=== PATIENT | female | born 1990 | race Caucasian/White ===

== ENCOUNTER 2019-03-12 05:00 | Inpatient (IN) ==
[2019-03-12 05:22] LABS: Microscopic, Urine URINE MICROSCOPIC (MICROSCOPIC)
[2019-03-12 05:25] LABS: Basophils % 0.4 % (0.1-2.0); Eosinophils # 0.2 K/mm3 (0.0-0.4); Hemoglobin 12.8 g/dL (12.2-16.2); Lymphocytes # 1.6 K/mm3 (0.7-4.5); Lymphocytes % 20.3 % (10-50); Mean Corpuscular HGB Conc 32.8 g/dL (31.8-35.4); Mean Corpuscular Volume 89.9 fl (81-99); Mean Platelet Volume 7.5 fl (7.4-10.4); Monocytes # 0.5 K/mm3 (0.1-1.0); Monocytes % 5.7 % (1.7-9.3); Neutrophils # 5.7 K/mm3 (1.8-7.8); Neutrophils % 71.6 % (37.0-80.0); Platelet Count 268 K/mm3 (142-424); Red Blood Count 4.34 M/mm3 (4.20-5.40); Red Cell Distribution Width 12.4 % (11.5-17.5)
[2019-03-12 05:26] LABS: Appearance,Urine CLEAR (Clear); Bilirubin,Urine Negative (Negative); Blood, Urine Negative (Negative); Color,Urine YELLOW (Yellow); Glucose,Urine (UA) Negative (Negative); Ketones,Urine Negative (Negative); Leukocyte Esterase,Urine Negative (Negative); PH,Urine 5.5 (5.0-8.5); Protein,Urine Negative (Negative); Specific Gravity, Urine >= 1.030 (1.005-1.030); Urobilinogen,Urine 0.2 EU/dl (0.2)
[2019-03-12 05:31] LABS: Mucus,Urine 4+ /lpf
[2019-03-12 05:37] LABS: Alanine Aminotransferase 24 U/L (12-78); Albumin Level 3.8 gm/dL (3.4-5.0); Alkaline Phosphatase 69 U/L (46-116); Amylase 78 U/L (25-115); Anion Gap 14.8 mEq/L (5-15); Aspartate Amino Transferase 45 U/L (15-37); Bilirubin,Direct 0.2 mg/dL (0.0-0.2); Bilirubin,Indirect 0.3 mg/dL (0.0-0.9); Bilirubin,Total 0.5 mg/dL (0.2-1.0); Blood Urea Nitrogen 7 mg/dL (7-18); Calcium 8.9 mg/dL (8.5-10.1); Carbon Dioxide 24 mmol/L (21.0-32.0); Chloride 103 mmol/L (98-107); Glucose 127 mg/dL (74-106); Sodium 138 mmol/L (136-145); Total Protein,Serum 7.5 gm/dL (6.4-8.2)
--- NOTE | 2019-03-12 05:50 | Emergency Department Note ---
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 The time I documented below is in addition to time spent performing reported procedures but includes the following listed in this critical care notation. Medical Decision Making - Medical Records Medical records reviewed: Yes: I reviewed the patient's medical records. - Harvey Inquiry Pt receiving controlled substance: No Harvey was queried for this patient: No Vital Signs: 03/12/19 05:09 Temperature 98.3 F Temperature Source Oral Pulse Rate [Right] 77 Respiratory Rate 18 Blood Pressure [Right Arm] 106/61 L Blood Pressure Mean [Right Arm] 76 Blood Pressure Source [Right Arm] Automatic Cuff Blood Pressure Position [Right Arm] Supine 02 Sat by Pulse Oximetry 100 Oxygen Delivery Method Room Air - Lab Data Lab results reviewed: Yes: I reviewed the patient's lab results. Lab Results 03/12/19 05:08: Urine Color Yellow, Urine Appearance Clear, Urine pH 5.5, Ur Specific [place] >= 1.030, Urine Protein Negative, Urine Glucose (UA) Negative, Urine Ketones Negative, Urine Blood Negative, Urine Nitrate Negative, Urine Bilirubin Negative, Urine Urobilinogen 0.2, Ur Leukocyte Esterase Negative, Ur Squamous Epith Cells 10-20, Urine Mucus 4+ 03/12/19 05:08: WBC 8.0, RBC 4.34, Hgb 12.8, Hct 39.0, MCV 89.9, MCH 29.5, MCHC 32.8, RDW 12.4, Plt Count 268, MPV 7.5, Neut % (Auto) 71.6, Lymph % (Auto) 20.3, [place] % (Auto) 5.7, Eos % (Auto) 2.0, Baso % (Auto) 0.4, Neut # (Auto) 5.7, Lymph # (Auto) 1.6, [place] # (Auto) 0.5, Eos # (Auto) 0.2, Baso # (Auto) 0.0 03/12/19 05:08: Urine HCG, Qual Negative 03/12/19 05:08: Sodium 138, Potassium 3.8, Chloride 103, Carbon Dioxide 24, Anion Gap 14.8, BUN 7, Creatinine 0.86, Estimated Creat Clear 98, Estimated GFR 77, Est GFR ( Amer) 93, Glucose 127 H, Calcium 8.9, Total Bilirubin 0.5, Direct Bilirubin 0.2, Indirect Bilirubin 0.3, AST 45 H, ALT 24, Alkaline Bess sphatase 69, Troponin I < 0.02, Total Protein 7.5, Albumin 3.8, Amylase 78, Lipase 905 H 03/12/19 05:42: Lactate 0.7 Result diagrams: 03/12/19 05:08 03/12/19 05:08 Orders (Tests/Meds): ED MEDICATIONS Generic Name Dose Route Start Last Admin Trade Name Freq PRN Reason Stop Dose Admin Sodium Chloride 1,000 mls @ 999 mls/hr 03/12/19 05:30 03/12/19 05:55 Sod Chlor 0.9% 1000ml Bag IV 03/12/19 06:30 999 mls/hr .Q1H1M DAFNE Administration Sodium Chloride 10 ml 03/12/19 05:17 Saline Flush 10ml Syringe IV 04/11/19 05:16 NEEDED PRN Maintain IV Site Sodium Chloride 8 ml 03/12/19 05:17 Sodium Chloride 0.9% 10ml Vial IV 04/11/19 05:16 NEEDED PRN dilute pepcid Sodium Chloride 10 ml 03/12/19 05:25 03/12/19 05:55 Sodium Chloride 0.9% 10ml Vial IV 04/11/19 05:24 10 ml NEEDED PRN Administration dilute protonix Sodium Chloride 10 ml 03/12/19 05:25 Saline Flush 10ml Syringe IV 04/11/19 05:24 NEEDED PRN Maintain IV Site Discontinued Medications Generic Name Dose Route Start Last Admin Trade Name Freq PRN Reason Stop Dose Admin Diatrizoate Meglum/Diatrizoate Sod 30 ml 03/12/19 05:17 03/12/19 05:34 Gastrografin 66%-10% 30ml PO 03/12/19 05:18 Not Given ONCE ONE Famotidine 20 mg 03/12/19 05:17 03/12/19 05:56 Pepcid 20mg/2ml Vial IV 03/12/19 05:18 20 mg ONCE ONE Administration Hydromorphone HCl 0.5 mg 03/12/19 05:24 03/12/19 06:52 Dilaudid 2mg/Ml Syringe IV 03/12/19 05:25 Not Given ONCE ONE Hydromorphone HCl 1 mg 03/12/19 05:53 03/12/19 05:55 Dilaudid 2mg/Ml Syringe IV 03/12/19 05:54 1 mg ONCE ONE Administration Ioversol 75 ml 03/12/19 06:29 03/12/19 06:30 Rad-Optiray 350 100ml Vial IV 03/12/19 06:30 75 ml ONCE ONE Administration Protocol Ketorolac Tromethamine 30 mg 03/12/19 05:17 03/12/19 05:56 Toradol 30mg/Ml Vial IV 03/12/19 05:18 30 mg ONCE ONE Administration Metoclopramide HCl 10 mg 03/12/19 05:17 03/12/19 05:56 Reglan 10mg/2ml Vial IVP 03/12/19 05:18 10 mg ONCE ONE Administration Ondansetron HCl 4 mg 03/12/19 05:17 03/12/19 05:56 Zofran 4mg/2ml Vial IV 03/12/19 05:18 4 mg ONCE ONE Administration Ondansetron HCl 4 mg 03/12/19 05:25 03/12/19 05:54 Zofran 4mg/2ml Vial IV 03/12/19 05:26 4 mg ONCE ONE Administration Pantoprazole Sodium 40 mg 03/12/19 05:25 03/12/19 06:52 Protonix 40mg Vial IV 03/12/19 05:26 Not Given ONCE ONE Sodium Chloride 10 ml 03/12/19 06:29 03/12/19 06:30 Rad-Saline Flush 10ml Syringe IV 03/12/19 06:30 10 ml ONCE ONE Administration ORDERS Category Date Time Status CT abdomen pelvis w con Stat Cat Scan 03/12/19 05:17 Taken - Physician Consults Physician Consulted: ba dillard gastro Comment/Response: mrcp if levels rise yasmine, rec obs status here ...clear liquids Additional Consult: claudia Reason -: Admission, Pt condition Abdominal Pain HPI - General Chief Complaint: Abdominal Pain Stated Complaint: Abdominal Pain Time Seen by Provider: 03/12/19 05:15 Mode of Arrival: Ambulatory Limitations: No Limitations Description of Symptoms (Recalled from ER Triage Doc. by RN): Pt c/o RUQ abd pain w/ nausea and diarrhea x 3 days - History of Present Illness HPI narrative: she tells me pain began at 0100, associated with nausea. Elizabeth remote, no similar previous symptoms - Related Data Home Medications Medication Instructions Recorded Confirmed fluoxetine 10 mg capsule 10 mg PO DAILY 01/15/19 03/12/19 Allergies Allergy/AdvReac Type Severity Reaction Status Date / Time SULFA (SULFONAMIDE) Allergy Intermediate I-RASH Uncoded 01/15/19 10:20 [facility] History - Hepatitis A Screen Drug use history?: No High risk sexual behaviors?: No History of sexually transmitted infection?: No Currently employed?: No Childcare worker?: No Do you have indoor plumbing?: Yes Do you have electricity?: Yes Attestation statement:: This patient has been screened for Hepatitis A risk factors. I have reviewed the patient's past medical history: Yes Medical History: Reports:: Depression Denies:: Diabetes Mellitus Type 1, Diabetes Mellitus Type 2 Other Surgeries: Yes: No Previous Surgery Amputation: No - Social History Smoking Status: Never smoker Alcohol Intake: never Substance Use Type: denies use Occupational Status: employed Housing: house Household Members: family - Psychiatric History Pschychiatric History:: Reports:: Depression Family Hx:: Non-contributory ROS Obtained: Yes All systems reviewed & no additional complaints - Constitutional Constitutional: Reports chills - Cardiovascular Cardiovascular: Denies chest pain, Denies chest pain at rest - Respiratory Respiratory: No chest congestion, No cough - Gastrointestinal Gastrointestingal: Reports: abdominal pain, nausea. Denies: vomiting blood - Genitourinary Female Genitourinary: Denies dysuria, Denies flank pain - Musculoskeletal Musculoskeletal: Denies joint stiffness, Denies joint swelling, Denies muscle weakness - Integumentary/Breasts Skin/Breast: Denies rash, Denies skin pain - Neurologic Neurologic: Denies headache(s), Denies numbness Physical Exam - General General appearance: alert, in no apparent distress - Head Head exam: atraumatic, normocephalic, normal inspection - Eye Eye exam: Present: normal appearance, PERRL, EOMI - ENT ENT exam: Present: normal exam, normal oropharynx, mucous membranes moist, TM's normal bilaterally, normal external ear exam - Neck Neck exam: Present: normal inspection, full ROM, trachea midline. Absent: meningismus, lymphadenopathy - Chest Chest inspection: Present: normal inspection, symmetric chest wall rise. Absent : tenderness - Respiratory Respiratory exam: Present: normal lung sounds bilaterally. Absent: respiratory distress - Cardiovascular Cardiovascular exam: Present: regular rate, normal rhythm. Absent: JVD - Abdominal Exam Abdominal exam: Present: soft, tenderness. Absent: distention, guarding, rebound Abdominal tenderness: Present: RUQ - Extremities Exam Extremities exam: Present: normal inspection, full ROM, normal capillary refill. Absent: calf tenderness - Back Exam Back exam: Present: normal inspection. Absent: tenderness - Neurological Exam Neurological exam: Present: alert, oriented X3 - Psychiatric Psychiatric exam: Present: normal affect, normal mood - Lymphatic Lymphatic Findings: no adenopathy
--- NOTE | 2019-03-12 11:15 | Pharmacy Consult Notes ---
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
--- NOTE | 2019-03-12 11:43 | History & Physical Report ---
*Admission Date: 03/12/19 *Chief complaint: Abdominal pain *History of present illness: She is a 29-year-old female who presented to our ED with epigastric abdominal pain that started yesterday. She mentioned that she was having some diarrhea prior to her pain for about a day. She had her gallbladder removed in 2012, however she felt like this pain was similar to that but much worse. She endorses having a nausea and vomiting episodes as well. Denies having any prior pancreatitis episode. Denies drinking any alcohol more than occasional level. In the ED her work-up showed elevated lipase. Consult of GI specialist, Dr. Villatoro was obtained who recommended getting a MRCP if possible. Patient was adm itted to our hospital for pain control and treating mild pancreatitis episode, to obtain MRCP. During rounds, patient mentions that she is doing a lot better compared to last night. She will was having some epigastric tenderness. Is willing to try clear liquid diet. [facility] [place] History I have reviewed the patient's past medical history: Yes Medical History: Reports:: Depression Denies:: Cancer, Diabetes Mellitus Type 1, Diabetes Mellitus Type 2, MRSA *Have you ever received a pneumonia vaccine?: No *Have you received a flu vaccine this season?: Yes Other Surgeries: Yes: No Previous Surgery, Cholecystectomy Amputation: No Fractures: No - *Social History Educational Level: Completed College Smoking Status: Never smoker Alcohol Intake: never Substance Use Type: denies use *Occupational Status:: employed Housing: house Household Members: family *Travel in the last 8 weeks: None - Psychiatric History Pschychiatric History:: Reports:: Depression Family Hx:: Non-contributory, Cancer, Diabetes Review of Systems - Constitutional Reports lack of energy, Denies fatigue, Denies increased appetite, Denies malaise - Eyes Denies blurry vision - ENT Denies change in voice - *Cardiovascular Denies chest pain, Denies chest pain at rest, Denies chest pain with activity, Denies leg pain with activity, Denies shortness of breath - *Respiratory Denies change in phlegm color, Denies chest congestion, Denies cough, Denies shortness of breath - *Gastrointestinal Reports abdominal pain, Reports loose stools, Reports nausea - *Genitourinary Denies difficulty urinating - *Musculoskeletal Denies abnormal walking, Denies joint pain, Denies decreased muscle mass, Denies limited joint movement - Integumentary/Breasts Denies bleeding lesions, Denies change in hair - *Neurologic Denies headache(s), Denies numbness - Psychiatric Denies lack of enjoyment, Denies depression - Endocrine Denies excessive sweating - Hematologic/Lymphatic Denies easy bleeding Meds Home Medications Medication Instructions Recorded Confirmed Type fluoxetine 10 mg capsule 10 mg PO DAILY 01/15/19 03/12/19 History Allergies Allergy/AdvReac Type Severity Reaction Status Date / Time SULFA (SULFONAMIDE) Allergy Intermediate I-RASH Uncoded 01/15/19 10:20 Exam Vital signs and Labs for Last 24 Hours: Temp Pulse Resp BP Pulse Ox 98.3 F 78 16 136/78 100 03/12/19 08:42 03/12/19 08:42 03/12/19 08:42 03/12/19 08:42 03/12/19 08:22 Laboratory Results - last 24 hr 03/12/19 05:08: Urine Color Yellow, Urine Appearance Clear, Urine pH 5.5, Ur Specific [place] >= 1.030, Urine Protein Negative, Urine Glucose (UA) Negative, Urine Ketones Negative, Urine Blood Negative, Urine Nitrate Negative, Urine Bilirubin Negative, Urine Urobilinogen 0.2, Ur Leukocyte Esterase Negative, Ur Squamous Epith Cells 10-20, Urine Mucus 4+ 03/12/19 05:08: WBC 8.0, RBC 4.34, Hgb 12.8, Hct 39.0, MCV 89.9, MCH 29.5, MCHC 32.8, RDW 12.4, Plt Count 268, MPV 7.5, Neut % (Auto) 71.6, Lymph % (Auto) 20.3, [place] % (Auto) 5.7, Eos % (Auto) 2.0, Baso % (Auto) 0.4, Neut # (Auto) 5.7, Lymph # (Auto) 1.6, [place] # (Auto) 0.5, Eos # (Auto) 0.2, Baso # (Auto) 0.0 03/12/19 05:08: Urine HCG, Qual Negative 03/12/19 05:08: Sodium 138, Potassium 3.8, Chloride 103, Carbon Dioxide 24, Anion Gap 14.8, BUN 7, Creatinine 0.86, Estimated Creat Clear 98, Estimated GFR 77, Est GFR ( Amer) 93, Glucose 127 H, Calcium 8.9, Total Bilirubin 0.5, Direct Bilirubin 0.2, Indirect Bilirubin 0.3, AST 45 H, ALT 24, Alkaline Phosphatase 69, Troponin I < 0.02, Total Protein 7.5, Albumin 3.8, Amylase 78, Lipase 905 H 03/12/19 05:42: Lactate 0.7 I & O for Last 24 hours: Intake & Output 03/09/19 03/10/19 03/11/19 03/12/19 11:59 11:59 11:59 11:59 Weight 147 lb 3 oz - *Routine HEENT Exam Head: Present: normocephalic Eye: Present: EOMI, PERRL ENT: Present: mucous membranes moist - *Routine Neck Exam Present: supple. Absent: lymphadenopathy - *Routine Respiratory Exam Present: CTA bilaterally - *Routine Cardiovascular Exam Present: RRR - *Routine Abdominal Exam Present: soft, tenderness (epigastric). Absent: normoactive bowel sounds (hypoactive bowel sounds) - *Routine Extremities Exam Absent: cyanosis, clubbing, edema - *Routine Skin Exam Present: warm. 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 We will try to attempt to get MRI tomorrow and monitor her for improvement. Possible discharge in 1 to 2 days.
--- NOTE | 2019-03-13 08:05 | Progress Note ---
<Joya Nash - Last Filed: 03/13/19 08:02> Internal Medicine - PN: Subj *Date: 03/13/19 *Time: 08:02 Interval history: Patient does not feel much better. She states she continues with abdominal pain and frequent diarrhea. Sometimes she cannot make it to the bathroom. Diarrhea panel is pending. She is not sure how frequently she is voiding but feels her urinary output is diminished. She continues to have nausea but did not vomit during the night. She was unable to retain clear liquids yesterday. She did sleep some after the Phenergan. She is n.p.o. this morning for MRCP. She ambulates without difficulty. Exam Vital signs and Labs for Last 24 Hours: Temp Pulse Resp BP Pulse Ox 98.4 F 77 18 113/66 100 03/13/19 07:44 03/13/19 07:44 03/13/19 07:44 03/13/19 07:44 03/13/19 07:44 Laboratory Results - last 24 hr 03/12/19 15:20: Lipase 197 03/13/19 00:15: Lipase 88 I & O for Last 24 hours: Intake & Output 03/10/19 03/11/19 03/12/19 03/13/19 11:59 11:59 11:59 11:59 Intake Total 120 / 120 2160 / 2160 Balance 120 / 120 2160 / 2160 Weight 147 lb 3 oz 150 lb 5 oz - Constitutional no acute distress Comments: Has been to the bathroom. 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 GI consult. Continue with IV fluids. Diarrhea panel is pending <Josey Spicer - Last Filed: 03/13/19 09:39> Internal Medicine - PN: Subj *Date: 03/13/19 *Time: 09:39 Exam Vital signs and Labs for Last 24 Hours: Temp Pulse Resp BP Pulse Ox 98.4 F 77 18 113/66 100 03/13/19 07:44 03/13/19 07:44 03/13/19 07:44 03/13/19 07:44 03/13/19 07:44 Laboratory Results - last 24 hr 03/12/19 15:20: Lipase 197 03/13/19 00:15: Lipase 88 I & O for Last 24 hours: Intake & Output 03/10/19 03/11/19 03/12/19 03/13/19 11:59 11:59 11:59 11:59 Intake Total 120 / 120 2160 / 2160 Balance 120 / 120 2160 / 2160 Weight 147 lb 3 oz 150 lb 5 oz Assessment and Plan (1) Pancreatitis Current visit: Yes Status: Acute Category: Medical Code(s): K85.90 - Acute pancreatitis without necrosis or infection, unspecified (2) 

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
--- NOTE | 2019-03-13 18:02 | Electrocardiograph Report ---
APPROVED REPORT Exam: Resting ECG HR:74 bpm ECG Measurements Heart Rate 74 AXES AL 134 P 82 QRSd 80 QRS 80 QT 394 T49 QTc 437 <Conclusion> Normal sinus rhythm with sinus arrhythmia Normal ECG Electronically signed by : Angelo Medrano, 03/13/2019 18:01:49
--- NOTE | 2019-03-13 18:07 | Discharge Summary ---
General - General Admission date:: 03/12/19 Discharge date: 03/13/19 HPI HPI: She is a 29-year-old female who presented to our ED with epigastric abdominal pain that started yesterday. She mentioned that she was having some diarrhea prior to her pain for about a day. She had her gallbladder removed in 2012, however she felt like this pain was similar to that but much worse. She endorses having a nausea and vomiting episodes as well. Denies having any prior pancreatitis episode. Denies drinking any alcohol more than occasional level. In the ED her work-up showed elevated lipase. Consult of GI specialist, Dr. Villatoro was obtained who recommended getting a MRCP if possible. Patient was admitted to our hospital for pain control and treating mild pancreatitis episode, to obtain MRCP. During rounds, patient mentions that she is doing a lot better compared to last night. She will was having some epigastric tenderness. Is willing to try clear liquid diet. Hospital Course Hospital Course: Patient was started on pain control and advance diet tolerated. MRCP was negative for any biliary dilatation and or ectasia. Patient improved with IV antinausea medication and was tolerating full diet on the day of discharge. She was started on cholestyramine which also seem to help with her nausea and vomiting episodes. Her diarrhea panel was negative. GI consult obtained and they recommended outpatient follow-up as patient seemed to be improving in the hospital. Upon being stable on 03/13/2019 and her nausea being under control with patient able to tolerate full diet, she was discharged home. I have encouraged her to follow-up with GI outpatient as she may need further work-up regarding her chronic diarrhea. Objective Vital signs: Temp Pulse Resp BP Pulse Ox 98.4 F 77 18 113/66 100 03/13/19 07:44 03/13/19 07:44 03/13/19 07:44 03/13/19 07:44 03/13/19 07:44 - *Routine HEENT Exam Head: Present: normocephalic Eye: Present: EOMI ENT: Present: mucous membranes moist - *Routine Neck Exam Present: supple, full ROM - *Routine Respiratory Exam Present: CTA bilaterally - *Routine Cardiovascular Exam Present: RRR - *Routine Abdominal Exam Present: soft, normoactive bowel sounds. Absent: tenderness, distended, rebound - *Routine Extremities Exam Present: full ROM. Absent: cyanosis, clubbing, edema - *Routine Skin Exam Present: intact. Absent: dry - *Routine Neurological Exam Present: alert, oriented X3 Results Labs on day of discharge: Labs from last 24 hours 03/13/19 03/12/19 00:15 07:20 Lipase 88 Stl Aeromonas (PCR) Not detected Stl C. cayetanensis PCR Not detected Stool Rotavirus (PCR) Not detected Stl Adenov F 40/41 PCR Not detected Stool Astrovirus (PCR) Not detected Stool Campylobacter PCR Not detected Stl C.difficile Tox PCR Not detected Stool Cryptosporidium PCR Not detected Stl E.coli Shiga Tox PCR Not detected Stool E coli O157 PCR Not detected Stl Enterotoxigenic E PCR Not detected Stool EPEC (PCR) Not detected Stool EAEC (PCR) Not detected Stl E. histolytica PCR Not detected Stool Giardia Lamblia PCR Not detected Stool Salmonella PCR Not detected Stool Sapovirus (PCR) Not detected Stl P. 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 Status: Acute (3) Elevated lipase Status: Acute (4) Abdominal pain Status: Acute Discharge Plan - Patient Discharge Instructions ACTIVITY: Continue current activity DIET: continue same diet Patient Instructions: DI for Pancreatitis, DI for Abdominal Pain-Adult - Follow up Plan Follow up with: Kirit Sen MD [Staff Physician] - 1 week Unknown provider or service follow up:: 03/13/19 18:01 PCP in 1-2 days Disposition: Home, Self-Snf Medications: Home Medications Medication Instructions Recorded Confirmed Type fluoxetine 10 mg capsule 10 mg PO DAILY 01/15/19 03/13/19 History Cholestyramine/Aspartame 4 gm PO AC 30 Days #30 powd.pack 03/13/19 Rx [Prevalite 4gm Powder Pack] Ondansetron HCl [Zofran 4mg Tab] 4 mg PO TID PRN 7 Days #21 tab 03/13/19 Rx Promethazine HCl [Phenergan 12.5mg 12.5 mg PO Q8H PRN #10 tab 03/13/19 Rx tablet] Prescriptions/Medication Reconciliation: New Ondansetron HCl [Zofran 4mg Tab] 4 mg PO TID PRN 7 Days #21 tab PRN Reason: Nausea Cholestyramine/Aspartame [Prevalite 4gm Powder Pack] 4 gm PO AC 30 Days #30 powd.pack Promethazine HCl [Phenergan 12.5mg tablet] 12.5 mg PO Q8H PRN #10 tab PRN Reason: Nausea Continued fluoxetine 10 mg capsule 10 mg PO DAILY - Problem Reconciliation Problems Reviewed?: Yes
== END 2019-03-13 18:25 | disposition home or self-care (01) | DRG 440 ==
LOC: ER 05:00 → 2ND 05:00
PROVIDERS: ADMIT Emergency Medicine; ATTEND Emergency Medicine
CPT/HCPCS: 36415; 71020; 71046; 74177; 74181; 76376; 80048; 80076; 81001; 81025; 82150; 83605; 83690; 84484; 85025; 87507; 93005; 96374; 96375; 99284; J2405; Q9967

== ENCOUNTER 2020-05-18 13:44 | Emergency (ER) | payer OTHER, SELFPAY ==
[2020-05-18 14:11] VITALS: BP 124/80; PULSE 74; RESP 18; TEMP 36.6; O2SAT 99; BMI 22.8
--- NOTE | 2020-05-18 14:26 | HMH.EDUTC ---
[facility] [place] Disposition Clinical Impression: Encounter for laboratory testing for COVID-19 virus Disposition: Home, Self-Care Condition on Discharge: Good Instructions: Preventing the Spread of Coronavirus Discharge Instructions Additional Instructions: *Monitor Temp, Over the counter Motrin or Tylenol as directed/as needed Tylenol every 4 hours and Motrin every 6 hours (as long as your family doctor has told you that you can take it) for fever or pain. and straight to ER if unable to lower temp less than 101.0 after medication given *Warm salt water gargles may help to soothe the throat *Throat Lozenges *Warm fluids like tea with honey may help to soothe the throat *Sleep elevated *Humidifier/Vaporizer Follow up IMMEDIATELY for new or worsening symptoms or no Noticeable improvement over the next 48-72 hours. 911 for difficulty breathing or swallowing You was tested for today for COVID19 your test result should be back in the next 24-48 hours, you may call to the [facility] tomorrow to see if your test results are back and the result [phone] You was given a handout with instructions for Self Quarantine and Self isolation for while you wait on test results and what to do if they are positive If you are positive the Health Dept will be contacting you also Referrals: Nida Koenig [Primary Care Provider] - As needed Forms: Work/School Release Time of Disposition: 14:27 Medical Decision Making - Harvey Inquiry Pt receiving controlled substance: No Harvey was queried for this patient: No Vital Signs: 05/18/20 14:11 Temperature 97.8 F Temperature Source Oral Pulse Rate [Radial] 74 Respiratory Rate 18 Blood Pressure [Right Arm] 124/80 Blood Pressure Mean [Right Arm] 94 Blood Pressure Source [Right Arm] Automatic Cuff Blood Pressure Position [Right Arm] Sitting 02 Sat by Pulse Oximetry 99 Oxygen Delivery Method Room Air Orders (Tests/Meds): ORDERS Category Date Time Status Covid-19 Nasal PCR ([facility]) Routine Lab 05/18/20 14:02 Received [facility] [place] HPI - General Stated complaint: covid test Time Seen by Provider: 05/18/20 14:26 Mode of Arrival: Ambulatory Source of Information: Patient Limitations: No Limitations Description of Symptoms (Recalled from Triage Doc. 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 and she wanted to get tested before going back to work Denies any symptoms - Related Data Home Medications Medication Instructions Recorded Confirmed fluoxetine 10 mg capsule 10 mg PO DAILY 01/15/19 03/13/19 Previous Rx's Medication Instructions Recorded Cholestyramine/Aspartame 4 gm PO AC 30 Days #30 powd.pack 03/13/19 [Prevalite 4gm Powder Pack] Promethazine HCl [Phenergan 12.5mg 12.5 mg PO Q8H PRN #10 tab 03/13/19 tablet] ondansetron HCL [Zofran 4mg Tab] 4 mg PO TID PRN 7 Days #21 tab 03/13/19 Allergies Allergy/AdvReac Type Severity Reaction Status Date / Time Sulfa (Sulfonamide Allergy Rash Verified 03/13/19 07:56 Antibiotics) - Worker's Comp Is this a Worker's Comp case?: No H History - Hepatitis A Screen Drug use history?: No High risk sexual behaviors?: No History of sexually transmitted infection?: No Currently employed?: No Childcare worker?: No Do you have indoor plumbing?: Yes Do you have electricity?: Yes Attestation statement:: This patient has been screened for Hepatitis A risk factors. I have reviewed the patient's past medical history: Yes Medical History: Reports:: Depression Denies:: Cancer, Diabetes Mellitus Type 1, Diabetes Mellitus Type 2, MRSA Other Surgeries: Yes: No Previous Surgery, Cholecystectomy
[2020-05-18 14:35] VITALS: BP 124/80; PULSE 74; RESP 18; TEMP 36.6; O2SAT 99
== END 2020-05-18 14:36 | disposition home or self-care (01) ==
PROVIDERS: Emergency Provider Nurse Practitioner; PCP Nurse Practitioner Family
DX: Z20.828 Contact with and (suspected) exposure to other viral communicable diseases (principal); F41.8 Other specified anxiety disorders; Z88.2 Allergy status to sulfonamides
CPT/HCPCS: 99201; U0003

== ENCOUNTER 2020-06-20 09:18 | Emergency (ER) | payer OTHER, SELFPAY ==
[2020-06-20 09:20] VITALS: BP 111/70; PULSE 67; RESP 20; TEMP 37.1; O2SAT 99; BMI 24.2
--- NOTE | 2020-06-20 09:38 | HMH.EDUTC ---
[facility] Disposition Clinical Impression: Exposure to COVID-19 virus Disposition: Home, Self-Care Condition on Discharge: Good Instructions: DI for COVID-19 (Suspected or Confirmed ), COVID-19 Viral Test, COVID-19: Testing and Tracing, Preventing the Spread of Coronavirus Discharge Instructions Additional Instructions: *Monitor Temp, Over the counter Motrin or Tylenol as directed/as needed Tylenol every 4 hours and Motrin every 6 hours (as long as your family doctor has told you that you can take it) for fever or pain. and straight to ER if unable to lower temp less than 101.0 after medication given Follow up IMMEDIATELY for new or worsening symptoms or no Noticeable improvement over the next 48-72 hours. 911 for difficulty breathing or swallowing You were tested for today for COVID19 your test result should be back in the next 24-48 hours, you may call to the [facility] to see if your test results are back in the next 48 hours [phone] [facility] hours are 9am-9pm You was given a handout with instructions for Self Quarantine and Self isolation for while you wait on test results and what to do if they are positive If you are positive the Health Dept will be contacting you also Referrals: Nida Koenig [Primary Care Provider] - Forms: Work/School Release Time of Disposition: 09:39 Medical Decision Making - Harvey Inquiry Pt receiving controlled substance: No Harvey was queried for this patient: No Vital Signs: 06/20/20 09:20 Temperature 98.7 F Temperature Source Oral Pulse Rate [Right Brachial] 67 Respiratory Rate 20 Blood Pressure [Right Arm] 111/70 Blood Pressure Mean [Right Arm] 83 Blood Pressure Source [Right Arm] Automatic Cuff Blood Pressure Position [Right Arm] Sitting 02 Sat by Pulse Oximetry 99 Oxygen Delivery Method Room Air Orders (Tests/Meds): ORDERS Category Date Time Status Covid-19 Nasal PCR ([facility]) Routine Lab 06/20/20 09:30 Received [facility] HPI - General Stated complaint: covid exposure Time Seen by Provider: 06/20/20 09:38 Mode of Arrival: Ambulatory Source of Information: Patient Limitations: No Limitations Description of Symptoms (Recalled from Triage Doc. by RN): PATIENT REQUESTING COVID TEST D/T EXPOSURE; DENIES SYMPTOMS HEENT Symptoms (Recalled from RN notes): No Resp Symptoms (Recalled from RN notes): No Skin Symptoms (Recalled from RN notes): No MS Symptoms (Recalled from RN notes): No Functional Status (Recalled from RN notes): WNL - History of Present Illness Provider Complaint: Patient states that she was recently around someone that recently tested positive for COVID States that she is not having any symptoms but she is wanting to get tested - Related Data Home Medications Medication Instructions Recorded Confirmed fluoxetine 10 mg capsule 10 mg PO DAILY 01/15/19 03/13/19 Previous Rx's Medication Instructions Recorded Cholestyramine/Aspartame 4 gm PO AC 30 Days #30 powd.pack 03/13/19 [Prevalite 4gm Powder Pack] Promethazine HCl [Phenergan 12.5mg 12.5 mg PO Q8H PRN #10 tab 03/13/19 tablet] ondansetron HCL [Zofran 4mg Tab] 4 mg PO TID PRN 7 Days #21 tab 03/13/19 Allergies Allergy/AdvReac Type Severity Reaction Status Date / Time Sulfa (Sulfonamide Allergy Rash Verified 03/13/19 07:56 Antibiotics) - Worker's Comp Is this a Worker's Comp case?: No [facility] History - Hepatitis A Screen Drug use history?: No High risk sexual behaviors?: No History of sexually transmitted infection?: No Currently employed?: No Childcare worker?: No Do you have indoor plumbing?: Yes Do you have electricity?: Yes Attestation statement:: This patient has been screened for Hepatitis A risk factors. I have reviewed the patient's past medical history: Yes Medical History: Reports:: Depression Denies:: Cancer, Diabetes Mellitus Type 1, Diabetes Mellitus Type 2, MRSA Other Surgeries: Yes: No Previous Surgery, Cholecystectomy Amputation: No Fractures: No - So
[2020-06-20 09:47] VITALS: BP 111/70; PULSE 67; RESP 20; TEMP 37.1; O2SAT 99
== END 2020-06-20 09:50 | disposition home or self-care (01) ==
PROVIDERS: Emergency Provider Nurse Practitioner; PCP Nurse Practitioner Family
DX: Z20.828 Contact with and (suspected) exposure to other viral communicable diseases (principal); F33.1 Major depressive disorder, recurrent, moderate; Z88.2 Allergy status to sulfonamides
CPT/HCPCS: 99201; U0003

== ENCOUNTER 2021-05-12 10:23 | Emergency (ER) | payer OTHER, SELFPAY ==
[2021-05-12 11:18] VITALS: BP 0/0; PULSE 0; RESP 0; TEMP -17.7; TEMP 0
== END 2021-05-12 11:21 | disposition left against medical advice (07) ==
LOC: UTC 10:26
PROVIDERS: Emergency Provider Nurse Practitioner; PCP Nurse Practitioner Family
DX: Z53.21 Procedure and treatment not carried out due to patient leaving prior to being seen by health care provider (principal)

== ENCOUNTER 2021-06-22 09:19 | Emergency (ER) | payer OTHER, SELFPAY ==
[2021-06-22 11:06] VITALS: BP 120/77; PULSE 72; RESP 18; TEMP 36.9; O2SAT 99; BMI 25.8
--- NOTE | 2021-06-22 11:12 | HMH.EDUTC ---
[facility] [place] Clinical Impression: Gastroenteritis Abdominal pain Qualifiers: Abdominal location: unspecified location Qualified Code(s): R10.9 - Unspecified abdominal pain Disposition: Home, Self-Care Condition on Discharge: Good Instructions: Gastroenteritis Diet, DI for Viral Gastroenteritis -- Adult Additional Instructions: Drink plenty of fluids. Take tylenol or ibuprofen for pain or fever. Take the medications as directed. Follow up with your regular doctor. GO TO THE ER FOR ANY WORSENING SYMPTOMS Prescriptions: Ondansetron [Zofran 4mg ODT] 8 mg PO Q8HP PRN #20 tab PRN Reason: Nausea Transmission Status: Pending to [facility] #[id number] Cimetidine HCl [Cimetidine] 300 mg PO BIDP PRN #30 ml PRN Reason: Heartburn Transmission Status: Pending to [facility] #[id number] Referrals: Nida Koenig [Primary Care Provider] - Forms: Work/School Release Time of Disposition: 12:21 Medical Decision Making - Medical Records Medical records reviewed: No: I reviewed the patient's medical records. - Harvey Inquiry Pt receiving controlled substance: No Vital Signs: 06/22/21 11:06 Temperature 98.4 F Temperature Source Oral Pulse Rate [Left] 72 Respiratory Rate 18 Blood Pressure [Right Arm] 120/77 Blood Pressure Mean [Right Arm] 91 02 Sat by Pulse Oximetry 99 - Lab Data Lab Results 06/22/21 11:02: Influenza Type A Ag Negative, Influenza Type B Ag Negative 06/22/21 11:25: WBC 9.6, RBC 4.70, Hgb 13.9, Hct 42.3, MCV 89.9, MCH 29.6, MCHC 33.0, RDW 12.7, Plt Count 344, MPV 8.5, Neut % (Auto) 84.8 H, Lymph % (Auto) 10.3, [place] % (Auto) 3.9, Eos % (Auto) 0.7, Baso % (Auto) 0.3, Neut # (Auto) 8.1 H, Lymph # (Auto) 1.0, [place] # (Auto) 0.4, Eos # (Auto) 0.1, Baso # (Auto) 0.0 06/22/21 11:25: Sodium 139, Potassium 4.0, Chloride 103, Carbon Dioxide 26, Anion Gap 14.0, BUN 8, Creatinine 0.70, Estimated Creat Clear 131, Estimated GFR 96, Est GFR ( Amer) 117, Glucose 104 H, Calcium 9.2, Total Bilirubin 1.0, AST 26, ALT 17, Alkaline Phosphatase 68, Total Protein 7.8, Albumin 4.5, Globulin 3.3 H, Albumin/Globulin Ratio 1.4, Amylase 57, Lipase 43 Result diagrams: 06/22/21 11:25 06/22/21 11:25 [facility] [place] - General Stated complaint: weakness,vomiting,diarrhea Time Seen by Provider: 06/22/21 11:10 Mode of Arrival: Ambulatory Source of Information: Patient Limitations: No Limitations Description of Symptoms (Recalled from Triage Doc. by RN): pt c/o n/v/d. pt states she is unable to keep anything down, even water. HEENT Symptoms (Recalled from RN notes): No Resp Symptoms (Recalled from RN notes): No Skin Symptoms (Recalled from RN notes): No MS Symptoms (Recalled from RN notes): No Functional Status (Recalled from RN notes): wnl - History of Present Illness Provider Complaint: She states that she has been vomiting and having diarrhea. Her symptoms began 5 days ago. She got better after 2 days, but then her symptoms returned yesterday. She denies fever or chills. She has a history of getting pancreatitis once in the past. She also has a history of gastropareisis. She has been taking phenergran at home, but it has not completely relieved her n/v. She also has some generalized abdominal pain and cramping. - Related Data Home Medications Medication Instructions Recorded Confirmed fluoxetine 10 mg capsule 10 mg PO DAILY 01/15/19 03/13/19 Previous Rx's Medication Instructions Recorded Cholestyramine/Aspartame 4 gm PO AC 30 Days #30 powd.pack 03/13/19 [Prevalite 4gm Powder Pack] Promethazine HCl [Phenergan 12.5mg 12.5 mg PO Q8H PRN #10 tab 03/13/19 tablet] ondansetron HCL [Zofran 4mg Tab] 4 mg PO TID PRN 7 Days #21 tab 03/13/19 Cimetidine HCl [Cimetidine] 300 mg PO BIDP PRN #30 ml 06/22/21 Ondansetron [Zofran 4mg ODT] 8 mg PO Q8HP PRN #20 tab 06/22/21 Allergies Allergy/AdvReac Type Severity Reaction Status Date / Time Sulfa (Sulfonamide Allergy Rash
[2021-06-22 11:45] LABS: UTC Influenza A Antigen Negative (Negative); UTC Influenza B Antigen Negative (Negative)
[2021-06-22 11:46] LABS: Basophils % 0.3 % (0.1-2.0); Eosinophils # 0.1 K/mm3 (0.0-0.4); Eosinophils % 0.7 % (0.1-12.0); Hematocrit 42.3 % (37.0-47.0); Hemoglobin 13.9 g/dL (12.2-16.2); Lymphocytes % 10.3 % (10-50); Mean Corpuscular Hemoglobin 29.6 pg (27.0-31.2); Mean Corpuscular Volume 89.9 fl (81-99); Mean Platelet Volume 8.5 fl (7.4-10.4); Monocytes # 0.4 K/mm3 (0.1-1.0); Monocytes % 3.9 % (1.7-9.3); Neutrophils # 8.1 K/mm3 (1.8-7.8); Neutrophils % 84.8 % (37.0-80.0); Platelet Count 344 K/mm3 (142-424); Red Cell Distribution Width 12.7 % (11.5-17.5); White Blood Count 9.6 K/mm3 (4.8-10.8)
[2021-06-22 11:47] LABS: Chloride 103 mmol/L (98-107); Sodium 139 mmol/L (136-145)
[2021-06-22 11:50] LABS: Alanine Aminotransferase 17 U/L (12-78); Alkaline Phosphatase 68 U/L (38-126); Amylase 57 U/L (30-110); Aspartate Amino Transferase 26 U/L (14-36); Blood Urea Nitrogen 8 mg/dl (7-17); Calcium 9.2 mg/dl (8.4-10.2); Carbon Dioxide 26 mmol/L (22.0-30.0); Creatinine Clearance Estimated 131 mL/min (50-200); Estimated Glomerular Filt Rate 96 ml/min (>60); GFR (African American) 117 ML/MIN (>60); Glucose 104 mg/dl (74-100); Lipase 43 U/L (23-300)
[2021-06-22 11:51] LABS: Albumin Level 4.5 g/dl (3.5-5.0); Albumin/Globulin Ratio 1.4 (1.1-1.8); Globulin 3.3 g/dL (1.3-3.2); Total Protein,Serum 7.8 g/dl (6.3-8.2)
[2021-06-22 12:41] VITALS: BP 120/77; PULSE 72; RESP 18; TEMP 36.9
[2021-06-22 16:53] LABS: Adenovirus,PCR Not Detected (NotDetected); Bordetella Pertussis Not Detected (NotDetected); Chlamydophila Pneumoniae, PCR Not Detected (NotDetected); Coronavirus 19, PCR Not Detected (NotDetected); Coronavirus 229E Not Detected (NotDetected); Coronavirus NL63 Not Detected (NotDetected); Coronavirus OC43 Not Detected (NotDetected); Coronovirus HKU1,PCR Not Detected (NotDetected); Human Metapneumovirus Not Detected (NotDetected); Influenza A, PCR Not Detected (NotDetected); Influenza AH1, 2009 Not Detected (NotDetected); Influenza AH1, PCR Not Detected (NotDetected); Influenza AH3,PCR Not Detected (NotDetected); Influenza B, PCR Not Detected (NotDetected); Mycoplasma Pneumoniae, PCR Not Detected (NotDetected); Parainfluenza 1, PCR Not Detected (NotDetected); Parainfluenza 2, PCR Not Detected (NotDetected); Parainfluenza 3, PCR Not Detected (NotDetected); Parainfluenza 4, PCR Not Detected (NotDetected); Respiratory Syncytial Virus Not Detected (NotDetected); Rhinovirus/Enterovirus Not Detected (NotDetected)
== END 2021-06-22 12:42 | disposition home or self-care (01) ==
PROVIDERS: Emergency Provider Nurse Practitioner Family; PCP Nurse Practitioner Family
DX: R10.30 Lower abdominal pain, unspecified (principal); K83.8 Other specified diseases of biliary tract; F33.1 Major depressive disorder, recurrent, moderate; Z88.2 Allergy status to sulfonamides; Z20.822 Contact with and (suspected) exposure to COVID-19
CPT/HCPCS: 80053; 82150; 83690; 85025; 87581; 87632; 87798; 87804; 96365; 96375; 99202; C9803; G0463; J2405; U0003; U0005

== ENCOUNTER 2022-05-13 17:48 | Emergency (ER) | payer OTHER, SELFPAY ==
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
[2022-05-13 19:34] VITALS: BP 118/74; PULSE 71; RESP 18; TEMP 36.8; O2SAT 99; BMI 29.0
[2022-05-13 19:40] LABS: UTC Strep Screen (Rapid) Positive (Negative)
[2022-05-13 19:42] VITALS: BP 118/74; PULSE 71; RESP 18; TEMP 36.8
== END 2022-05-13 19:45 | disposition home or self-care (01) ==
PROVIDERS: Emergency Provider Nurse Practitioner Family; PCP Nurse Practitioner Family
DX: J02.0 Streptococcal pharyngitis (principal)
CPT/HCPCS: 87880; 99212; G0463

== ENCOUNTER 2022-07-03 14:23 | Emergency (ER) | payer OTHER, SELFPAY ==
[2022-07-03 16:05] LABS: UTC Influenza A Antigen Negative (Negative); UTC Influenza B Antigen Negative (Negative)
[2022-07-03 16:07] VITALS: BP 137/82; PULSE 74; RESP 16; TEMP 37.2; O2SAT 100; BMI 29.0
--- NOTE | 2022-07-03 16:13 | EXP.UTC ---
Discharge Plan Disposition Patient Disposition: Home, Self-Care Condition: Good Prescriptions Prescriptions: New azithromycin [Zithromax Z-Bruno] 250 mg tablet See Rx Instructions .ROUTE .COMPLEX 5 Days Qty: 6 0RF Rx Instructions: For 250 mg dose pack: take 500 mg today (day 1), then 250 mg for 4 days (days 2-5) methylprednisolone [Medrol (Bruno)] 4 mg tablets,dose pack See Rx Instructions .Route .COMPLEX 6 Days Qty: 21 0RF Rx Instructions: taper pack; ondansetron 4 mg tablet,disintegrating 4 mg PO Q8H PRN (Reason: nausea and vomiting) Qty: 6 0RF No Action Trintellix 10 mg tablet 10 mg PO DAILY Qty: 30 1RF Activity Restrictions/Add. Instructions Additional Instructions/Restrictions: *Monitor Temp, Over the counter Motrin or Tylenol as directed/as needed Tylenol every 4 hours and Motrin every 6 hours (as long as your family doctor has told you that you can take it) for fever or pain. and straight to ER if unable to lower temp less than 101.0 after medication given *Warm salt water gargles may help to soothe the throat *Throat Lozenges? *Warm fluids like tea with honey may help to soothe the throat? *Sleep elevated *Humidifier/Vaporizer Follow up IMMEDIATELY for new or worsening symptoms or no Noticeable improvement over the next 48-72 hours. 911 for difficulty breathing or swallowing You were tested for today for Upper Respiratory Panel with COVID19 your test result should be back in the next 24-48 hours, you may check your results on the [facility] Portal Clinical Impressions Clinical Impression: URI (upper respiratory infection) Qualifiers: URI type: unspecified URI Qualified Code(s): J06.9 - Acute upper respiratory infection, unspecified Stand Alone Forms Stand Alone Forms: Work/School Release Instructions Patient Instructions: Sinusitis, Diarrhea, DI for Sinusitis, Nausea and Vomiting-Adult Discharge ED Provider: Adriane Smart [facility] HPI General Stated complaint: Congestion,Cough Mode of Arrival: Ambulatory Source of Information: Patient Limitations: No Limitations Time Seen by Provider: 07/03/22 16:13 Description of Symptoms (Recalled from Triage Doc. by RN): pt comes in with c/o body aches, chills, headache, vomitting, diarrhea. symptoms began 7 days ago HEENT Symptoms (Recalled from RN notes): Yes Resp Symptoms (Recalled from RN notes): Yes Skin Symptoms (Recalled from RN notes): No MS Symptoms (Recalled from RN notes): No Functional Status (Recalled from RN notes): n/a History of Present Illness Provider Complaint: Patient states that she hasnt felt well for about a week states that she has been having sinus congestion and pressure, body aches, headache, chills, N/V/D States that today she was still not feeling well and worried that she may have the flu so she wanted to get checked Related Data Previous Rx's Medication Instructions Recorded vortioxetine 10 mg tablet 10 mg PO DAILY #30 tabs 05/30/22 (Trintellix) azithromycin 250 mg tablet See Rx Instructions PO .COMPLEX 5 07/03/22 (Zithromax Z-Bruno) days #6 tabs methylprednisolone 4 mg tablets in See Rx Instructions .Route 07/03/22 a dose pack (Medrol (Bruno)) .COMPLEX 6 days #21 tabs ondansetron 4 mg disintegrating 4 mg PO Q8H PRN nausea and 07/03/22 tablet vomiting #6 tabs Allergies Allergy/AdvReac Type Severity Reaction Status Date / Time Sulfa (Sulfonamide Allergy Rash Verified 07/03/22 16:11 Antibiotics) Worker's Comp Is this a Worker's Comp case?: No [facility] Disclaimer: The information contained in this section may have been updated after the patient was seen, as this information can be updated by other users. Medical History Posttraumatic stress disorder Family History Grandmother FHx: mental illness Social History (Reviewed 05/14/22 @ 22:16 by Wally
[2022-07-03 16:41] VITALS: BP 137/82; PULSE 74; RESP 16; TEMP 37.2
[2022-07-03 16:45] LABS: Adenovirus,PCR Not Detected (NotDetected); Bordetella Pertussis Not Detected (NotDetected); Chlamydophila Pneumoniae, PCR Not Detected (NotDetected); Coronavirus 19, PCR Not Detected (NotDetected); Coronavirus 229E Not Detected (NotDetected); Coronavirus OC43 Not Detected (NotDetected); Coronovirus HKU1,PCR Not Detected (NotDetected); Human Metapneumovirus Not Detected (NotDetected); Influenza A, PCR Not Detected (NotDetected); Influenza AH1, 2009 Not Detected (NotDetected); Influenza AH1, PCR Not Detected (NotDetected); Influenza AH3,PCR Not Detected (NotDetected); Influenza B, PCR Not Detected (NotDetected); Mycoplasma Pneumoniae, PCR Not Detected (NotDetected); Parainfluenza 1, PCR Not Detected (NotDetected); Parainfluenza 2, PCR Not Detected (NotDetected); Parainfluenza 3, PCR Not Detected (NotDetected); Parainfluenza 4, PCR Not Detected (NotDetected); Respiratory Syncytial Virus Not Detected (NotDetected); Rhinovirus/Enterovirus Not Detected (NotDetected)
[2022-07-03 23:11] LABS: Coronavirus NL63 Detected (NotDetected)
== END 2022-07-03 16:42 | disposition home or self-care (01) ==
PROVIDERS: Emergency Provider Nurse Practitioner
DX: U07.1 COVID-19 (principal)
CPT/HCPCS: 87581; 87632; 87798; 87804; 99212; C9803; G0463; U0003; U0005

== ENCOUNTER → 2022-09-04 08:28 | Outpatient (CLI) | payer OTHER, SELFPAY ==
--- NOTE | 2022-09-04 08:37 | US_ITS ---
FINAL REPORT TECHNIQUE: Sonographic images of the pelvis were obtained transvaginally. CLINICAL HISTORY: LOWER ABDOMINAL PAIN FINDINGS: The uterus is anteverted and anteflexed. It measures 6.3 x 4.3 x 3.2 cm. The endometrial stripe measures 10 mm which is normal for age. There are several small fibroids in the uterus. The cervix is within normal limits. The right ovary measures 2.9 x 2.0 x 1.5 cm. It is normal in appearance. The left ovary measures 3.8 x 3.5 x 2.8 cm. There is a 2.9 cm cyst with internal echoes which is most concerning for a hemorrhagic cyst. Color imaging to the ovaries is within normal limits. There is physiologic free fluid. IMPRESSION: 1. Fibroid uterus. 2. 2.9 cm hemorrhagic left ovarian cyst. Consider follow-up exam in 6 or 10 week. Reviewed, Interpreted and Dictated by Marylou Shepherd MD Transcribed by Claritza Hannah Authenticated and [facility]
== END ==
PROVIDERS: Visit Provider Nurse Practitioner Family
DX: R10.30 Lower abdominal pain, unspecified (principal)
CPT/HCPCS: 76830

== ENCOUNTER 2022-12-03 10:33 | Emergency (ER) | payer BC, OTHER, SELFPAY ==
[2022-12-03 10:40] VITALS: BP 129/85; PULSE 81; RESP 18; TEMP 37.1; O2SAT 99; BMI 25.8
[2022-12-03 10:49] LABS: Apearance,Urine Cloudy (Clear); Bilirubin,Urine Negative (Negative); Blood, Urine 3+ (Negative); Color,Urine Dark Yellow (Yellow); Glucose,Urine (UA) Negative (Negative); Ketones,Urine Negative (Negative); Protein,Urine Negative (Negative); UTC Leukocyte Esterase,Urine 3+ (Negative); UTC Nitrate,Urine Negative (Negative); Urobilinogen,Urine 0.2 EU/dl (0.2)
--- NOTE | 2022-12-03 10:54 | EXP.UTC ---
Discharge Plan Disposition Patient Disposition: Home, Self-Care Condition: Fair Prescriptions Prescriptions: New nitrofurantoin monohyd/m-cryst [Macrobid] 100 mg capsule 100 mg PO BID 5 Days Qty: 10 0RF Rx Instructions: must administer with a meal/food No Action Trintellix 10 mg tablet 10 mg PO DAILY norgestimate-ethinyl estradiol [Makayla] 0.25-35 mg-mcg tablet 1 tab PO DAILY Label Comments: TAKE 1 TABLET BY MOUTH 1 TIME EACH DAY Referrals Follow up/Referrals: Nida Koenig [Primary Care Provider] - See instructions Activity Restrictions/Add. Instructions Additional Instructions/Restrictions: Macrobid as directed. Follow-up with PCP in 1 to 2 days. Return to the ER for fever, worsening pain, nausea/vomiting/diarrhea. Clinical Impressions Clinical Impression: Cystitis Discharge ED Provider: Douglas Arana [facility] [place] <Adriane Smart APRN - Last Filed: 12/03/22 12:34> General Chief complaint: PAIN Stated complaint: Possible UTI Mode of Arrival: Ambulatory Source of Information: Patient Limitations: No Limitations Time Seen by Provider: 12/03/22 10:54 Description of Symptoms (Recalled from Triage Doc. by RN): PATIENT C/O FREQUENCY AND PAIN WITH URINATION X 4 DAYS HEENT Symptoms (Recalled from RN notes): No Resp Symptoms (Recalled from RN notes): No Skin Symptoms (Recalled from RN notes): No MS Symptoms (Recalled from RN notes): No Functional Status (Recalled from RN notes): WNL History of Present Illness Provider Complaint: Patient states that she recently started a new control to help with endometriosis States that since Wednesday she has been having pain in her lower abdomen especially in right lower quad States that initially it was just pain but today it feels like stabbing pain States that she has had a hemorrhagic cyst in the past and feels similar to that but unsure States that also she has been having frequency and urgency and thought she may have a UTI also States she was scheduled for repeat US tomorrow but couldnt wait when today her pain was alot worse and bringing her to tears Last BM this morning and on her menstrual cycle now Related Data Home Medications Medication Instructions Recorded Confirmed norgestimate 0.25 mg-ethinyl 1 tab PO DAILY control 12/03/22 12/03/22 estradiol 35 mcg tablet (Makayla) vortioxetine 10 mg tablet 10 mg PO DAILY Anxiety 12/03/22 12/03/22 (Trintellix) Previous Rx's Medication Instructions Recorded nitrofurantoin 100 mg PO BID 5 days #10 caps 12/03/22 monohydrate/macrocrystals 100 mg capsule (Macrobid) Allergies Allergy/AdvReac Type Severity Reaction Status Date / Time Sulfa (Sulfonamide Allergy Rash Verified 10/12/22 09:58 Antibiotics) Worker's Comp Is this a Worker's Comp case?: No PFS <Adriane Smart APRN - Last Filed: 12/03/22 12:34> [facility] Disclaimer: The information contained in this section may have been updated after the patient was seen, as this information can be updated by other users. Medical History (Updated 12/03/22 @ 12:27 by Douglas Arana DO) Anxiety Endometriosis Posttraumatic stress disorder Surgical History (Updated 12/03/22 @ 10:51 by Tracy Jackson RN) History of cholecystectomy Family History Grandmother FHx: mental illness Social History Smoking Status: Never smoker second hand exposure: No alcohol intake: current counseling given: No substance use type: denies use and marijuana current occupational status: other Travel in the last 8 weeks: None adopted: No foster care: No household members: family housing: house lives independently: Yes marital status: number of children: 1 number of grandchildren: 0 education level: college service: No detention: No current occupation: music therapist pets and an
--- NOTE | 2022-12-03 11:08 | PC.NURSE ---
PATIENT SENT TO ER PER Stephane DEGROOT APRN FOR FURTHER EVALUATION. REPORT GIVEN TO JENNIFER SANTOS
[2022-12-03 11:25] VITALS: BP 114/84; PULSE 73; RESP 16; TEMP 36.8; O2SAT 100; BMI 25.8
--- NOTE | 2022-12-03 11:36 | PC.NURSE ---
PT NEEDS NOTHING AT THIS TIME, TAP CHEEMA AT BS
[2022-12-03 11:39] LABS: Basophils # 0.1 K/mm3 (0-0.2); Basophils % 0.6 % (0.1-2.0); Eosinophils # 0.3 K/mm3 (0.0-0.4); Eosinophils % 2.6 % (0.1-12.0); Hematocrit 38.4 % (37.0-47.0); Hemoglobin 12.6 g/dL (12.2-16.2); Lymphocytes # 2.2 K/mm3 (0.7-4.5); Lymphocytes % 18.2 % (10-50); Mean Corpuscular HGB Conc 32.7 g/dL (31.8-35.4); Mean Corpuscular Hemoglobin 29.4 pg (27.0-31.2); Mean Corpuscular Volume 89.7 fl (81-99); Mean Platelet Volume 8.8 fl (7.4-10.4); Monocytes # 0.4 K/mm3 (0.1-1.0); Monocytes % 3.2 % (1.7-9.3); Neutrophils % 75.4 % (37.0-80.0); Platelet Count 338 K/mm3 (142-424); Red Blood Count 4.28 M/mm3 (4.20-5.40); Red Cell Distribution Width 13.1 % (11.5-17.5); White Blood Count 11.9 K/mm3 (4.8-10.8)
[2022-12-03 11:46] LABS: Alanine Aminotransferase 23 U/L (12-78); Albumin Level 4.4 g/dl (3.5-5.0); Albumin/Globulin Ratio 1.4 (1.1-1.8); Alkaline Phosphatase 46 U/L (38-126); Anion Gap 14.5 mEq/L (5-15); Aspartate Amino Transferase 29 U/L (14-36); Bilirubin,Total 0.4 mg/dl (0.2-1.3); Blood Urea Nitrogen 6 mg/dl (7-17); Calcium 9.1 mg/dl (8.4-10.2); Carbon Dioxide 25 mmol/L (22.0-30.0); Chloride 105 mmol/L (98-107); Creatinine Clearance Estimated 151 mL/min (50-200); Estimated Glomerular Filt Rate 114 ml/min (>60); GFR (African American) 138 ML/MIN (>60); Globulin 3.2 g/dL (1.3-3.2); Glucose 91 mg/dl (74-100); Potassium 4.5 mmoL/L (3.5-5.1); Sodium 140 mmol/L (136-145); Total Protein,Serum 7.6 g/dl (6.3-8.2)
[2022-12-03 11:48] VITALS: BP 100/68; PULSE 65; O2SAT 100
[2022-12-03 12:00] VITALS: BP 102/71; PULSE 62; O2SAT 100
[2022-12-03 12:41] VITALS: BP 104/73; PULSE 65; RESP 18; TEMP 37.1; O2SAT 100
[2022-12-03 13:15] VITALS: BP 102/71; PULSE 62; RESP 16; TEMP 36.8; O2SAT 100
== END 2022-12-03 13:17 | disposition home or self-care (01) ==
LOC: UTC 11:07 → ER 11:10
PROVIDERS: Nurse Practitioner; Emergency Provider Family Medicine; PCP Nurse Practitioner Family
DX: N30.00 Acute cystitis without hematuria (principal); R10.31 Right lower quadrant pain; F41.9 Anxiety disorder, unspecified; F43.10 Post-traumatic stress disorder, unspecified
CPT/HCPCS: 80053; 81003; 85025; 87086; 96365; 99284; J0696

== ENCOUNTER 2023-03-14 10:11 | Emergency (ER) | payer BC, SELFPAY ==
[2023-03-14 10:55] VITALS: BP 117/74; PULSE 76; RESP 18; TEMP 36.7; O2SAT 100; BMI 25.0
--- NOTE | 2023-03-14 11:03 | EXP.UTC ---
Discharge Plan Disposition Patient Disposition: Home, Self-Care Condition: Good Prescriptions Prescriptions: New promethazine-DM 6.25-15 mg/5 mL Syrup 5 ml PO Q6H PRN (Reason: Cough) Qty: 240 0RF methylprednisolone 4 mg Tablets,Dose Pack 4 mg PO DIRECTED Qty: 21 0RF albuterol sulfate [Ventolin HFA] 90 mcg/actuation HFA aerosol inhaler 2 puff inhalation Q6H PRN (Reason: shortness of breath or wheezing) Qty: 6.7 0RF amoxicillin-pot clavulanate 875-125 mg Tablet 1 tab PO Q12H Qty: 20 0RF No Action Trintellix 10 mg tablet 10 mg PO DAILY norgestimate-ethinyl estradiol [Makayla] 0.25-35 mg-mcg tablet 1 tab PO DAILY Patient Comments: TAKE 1 TABLET BY MOUTH 1 TIME EACH DAY Referrals Follow up/Referrals: Nida Koenig [Primary Care Provider] - See instructions Activity Restrictions/Add. Instructions Additional Instructions/Restrictions: Drink plenty of fluids. Take tylenol or ibuprofen for pain or fever. Take the medications as directed. Follow up with your regular doctor. GO TO THE ER FOR ANY WORSENING SYMPTOMS The cough medication (promethazine dm) will make you drowsy, so don't drive or operate heavy machinery after taking it. Clinical Impressions Clinical Impression: Acute bronchitis, Acute sinusitis Stand Alone Forms Stand Alone Forms: Work/School Release Instructions Patient Instructions: DI for Sinusitis, DI for Acute Bronchitis Discharge ED Provider: Artem Cole [facility] [place] HPI General Stated complaint: cough,runny nose, congestion,headache Time Seen by Provider: 03/14/23 11:03 History of Present Illness Provider Complaint: She states that for the past 4 days she has had sinus congestion, cough, sore throat and malaise. Related Data Home Medications Medication Instructions Recorded Confirmed norgestimate 0.25 mg-ethinyl 1 tab PO DAILY control 12/03/22 03/14/23 estradiol 35 mcg tablet (Makayla) vortioxetine 10 mg tablet 10 mg PO DAILY Anxiety 12/03/22 03/14/23 (Trintellix) Previous Rx's Medication Instructions Recorded albuterol sulfate 90 mcg/actuation 2 puff inhalation Q6H PRN 03/14/23 aerosol inhaler (Ventolin HFA) shortness of breath or wheezing #6.7 grams amoxicillin 875 mg-potassium 1 tab PO Q12H #20 tabs 03/14/23 clavulanate 125 mg tablet methylprednisolone 4 mg tablets in 4 mg PO DIRECTED #21 tabs 03/14/23 a dose pack promethazine-DM 6.25 mg-15 mg/5 mL 5 ml PO Q6H PRN Cough #240 mL 03/14/23 oral syrup Allergies Allergy/AdvReac Type Severity Reaction Status Date / Time Sulfa (Sulfonamide Allergy Rash Verified 03/14/23 11:12 Antibiotics) [facility] Disclaimer: The information contained in this section may have been updated after the patient was seen, as this information can be updated by other users. Medical History (Updated 03/14/23 @ 11:31 by Artem Cole APRN) Anxiety Endometriosis Posttraumatic stress disorder Surgical History History of cholecystectomy Family History Grandmother FHx: mental illness Social History Smoking Status: Never smoker second hand exposure: No alcohol intake: current counseling given: No substance use type: denies use and marijuana current occupational status: other Travel in the last 8 weeks: None adopted: No foster care: No household members: family housing: house lives independently: Yes marital status: number of children: 1 number of grandchildren: 0 education level: college service: No jail: No current occupation: music therapist pets and animals: Yes pets and animals: cat(s), dog(s), horse(s) and farm animals Hx Recent Travel: Yes (To [place]; the past few weeks) out of state: Yes out of country: No sexually active: Yes caffe
[2023-03-14 11:39] VITALS: BP 117/74; PULSE 76; RESP 18; TEMP 36.7; O2SAT 100
== END 2023-03-14 11:39 | disposition home or self-care (01) ==
PROVIDERS: Emergency Provider Nurse Practitioner Family; PCP Nurse Practitioner Family
DX: J20.9 Acute bronchitis, unspecified (principal); J01.90 Acute sinusitis, unspecified; R53.81 Other malaise; F43.10 Post-traumatic stress disorder, unspecified; F41.9 Anxiety disorder, unspecified
CPT/HCPCS: 99212; 99214; G0463

== ENCOUNTER 2023-11-29 11:32 | Emergency (ER) | payer BC, SELFPAY ==
[2023-11-29 12:24] LABS: UTC Strep Screen (Rapid) Positive (Negative)
[2023-11-29 12:25] VITALS: BP 116/85; PULSE 78; RESP 20; TEMP 36.9; O2SAT 98; BMI 23.3
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
[2023-11-29 12:53] VITALS: BP 116/85; PULSE 78; RESP 20; TEMP 36.9; O2SAT 98
== END 2023-11-29 12:56 | disposition home or self-care (01) ==
PROVIDERS: Emergency Provider Nurse Practitioner; PCP Nurse Practitioner Family
DX: J02.0 Streptococcal pharyngitis (principal); R07.0 Pain in throat
CPT/HCPCS: 87880; 99212; 99214; G0463

== ENCOUNTER 2024-08-08 09:37 | Emergency (ER) | payer BC, SELFPAY ==
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
[2024-08-08 10:37] VITALS: BP 104/69; PULSE 75; RESP 18; TEMP 36.8; O2SAT 99; BMI 23.2
[2024-08-08] MEDS: DEXAMETHASONE 4MG/ML 1ML VIAL 4 MG IM (11:03)
[2024-08-08 11:28] VITALS: BP 104/69; PULSE 75; RESP 18; TEMP 36.8
== END 2024-08-08 11:46 | disposition home or self-care (01) ==
PROVIDERS: Emergency Provider Nurse Practitioner Family; PCP Nurse Practitioner Family
DX: L25.9 Unspecified contact dermatitis, unspecified cause (principal)
CPT/HCPCS: 96372; 99213; G0381; J1100